=== PATIENT | male | born 1955 ===

== ENCOUNTER 2017-10-12 20:55 | Emergency (ER) | payer MEDICAID ==
[~2017-10-12] VITALS: Ht 167.6 cm; Wt 65.8 kg
--- NOTE | 2017-10-12 21:02 | NUR ---
Pt BIB [id number] with c/o left flank pain, dysuria, & discoloration of his urine. Pt states the pain started 1 hr [employer]. AAOX4. Respirations even + unlabored. VSS. No acute distress noted.
--- NOTE | 2017-10-12 21:20 | NUR ---
MARKELL COBB AT BEDSIDE FOR MSE.
[2017-10-12] MEDS ORDERED: ONDANSETRON 4 MG/2 ML VIAL IV ONE (21:30)
[2017-10-12] MEDS ORDERED: IV NORMAL SALINE 1000 ML BAG IV ONE (21:30)
[2017-10-12] MEDS ORDERED: MORPHINE SULFATE 2 MG/1 ML DISP.SYRIN IV ONE (21:30)
[2017-10-12 21:41] LABS: BASOPHILS % (AUTO) 0.5 % (0.0-2.0); EOSINOPHILS # (AUTO) 0.1 K/uL (0.0-0.7); EOSINOPHILS % (AUTO) 1.6 % (0.0-7.0); HEMATOCRIT 40.7 % (36.7-47.1); HEMOGLOBIN 13.8 g/dL (12.5-16.3); LYMPHOCYTES # (AUTO) 1.5 K/uL (20.0-40.0); LYMPHOCYTES % (AUTO) 25.4 % (20.5-51.5); MEAN CORPUSCULAR HEMOGLOBIN 31.9 uug (23.8-33.4); MEAN CORPUSCULAR HGB CONC 34 g/dL (32.5-36.3); MEAN CORPUSCULAR VOLUME 93.8 fL (73.0-96.2); MONOCYTES # (AUTO) 0.4 K/uL (2.0-10.0); MONOCYTES % (AUTO) 7.4 % (0.0-11.0); NEUTROPHILS # (AUTO) 3.8 K/uL (1.8-8.9); NEUTROPHILS % (AUTO) 65.1 % (38.5-71.5); PLATELET COUNT (AUTO) 112 K/uL (152-348); RED BLOOD CELL COUNT(AUTO) 4.34 MIL/uL (4.06-5.63); WHITE BLOOD COUNT (AUTO) 5.8 K/uL (3.6-10.2)
[2017-10-12 21:44] LABS: *BILIRUBIN,URIN NEGATIVE (NEGATIVE); *BLOOD, URINE 3+ (NEGATIVE); *CLARITY,URINE CLOUDY (CLEAR); *COLOR,URINE YELLOW (YELLOW); *KETONES,URINE NEGATIVE (NEGATIVE); *PROTEIN,URINE NEGATIVE (NEGATIVE); *UROBILINOGEN,URINE 0.2 E.U./dl (NORMAL); LEUKOCYTE ESTERASE ,URINE NEGATIVE (NEGATIVE); NITRITE, URINE NEGATIVE (NEGATIVE); UGLUCOSE NEGATIVE (NEGATIVE)
[2017-10-12] MEDS ORDERED: ONDANSETRON 4 MG/2 ML VIAL ONE (21:44)
[2017-10-12] MEDS ORDERED: MORPHINE SULFATE 4 MG/1 ML DISP.SYRIN ONE (21:44)
[2017-10-12 21:52] LABS: CREATININE 0.8 mg/dL (0.6-1.3); POTASSIUM 3.7 mmol/L (3.5-5.1)
[2017-10-12 22:00] LABS: RBC,URINE TNTC /HPF (0-3)
[2017-10-12 22:01] LABS: BACTERIA,URINE NONE SEEN /HPF (NONE SEEN); SQUAMOUS EPITHELIAL CELL,UR FEW /HPF (NONE SEEN); WBC,URINE 0-3 /HPF (0-3)
[2017-10-12] MEDS ORDERED: NORMAL SALINE FLUSH 10 ML DISP.SYRIN ONE (22:04)
[2017-10-12] MEDS ORDERED: IOHEXOL 300MG/ML 100 ML INFUS..BTL ONE (22:04)
[2017-10-12] MEDS ORDERED: SWABABLE VALVE TRANSFER SET EA MC ONE (22:04)
[2017-10-12] MEDS ORDERED: IV NORMAL SALINE 100 ML ONE (22:04)
--- NOTE | 2017-10-12 23:29 | NUR ---
Pt resting comfortably in bed. Has no other complaints at this time. No acute distress noted. VSS. Awaiting results of CT scan. Family at bedside.
[2017-10-13] MEDS ORDERED: KETOROLAC TROMETHAMINE 30 MG INJ ONE (00:54)
[2017-10-13] MEDS ORDERED: KETOROLAC TROMETHAMINE 30 MG INJ IVP ONE (01:00)
--- NOTE | 2017-10-13 01:05 | NUR ---
Patient discharged to home in stable conditon. Written and verbal after care instructions given. Patient verbalizes understanding of instructions. Patient ambulated out of ER in steady gait accompanied by and daughter. VSS. No acute distress noted. All belongings with pt. IV removed. Catheter intact and site benign. Pressure and 4x4 gauze applied to site. No bleeding noted.
[2017-10-13 01:07] VITALS: BP 120/81
== END 2017-10-13 01:08 | disposition home or self-care (01) ==
LOC: ER 20:59
DX: N20.1 Calculus of ureter (principal)
CPT/HCPCS: 36415; 74177; 80048; 81001; 85025; 93005; 96361; 96374 ×2; 96375; 99284; A4663; J1885; J2270; J2405; J3490 ×2; J7030; Q9967